=== PATIENT | male | born 1995 ===

== ENCOUNTER 2017-12-29 10:27 | Emergency (ER) | payer OTHER ==
[2017-12-29 10:30] VITALS: BMI 20.5
[2017-12-29 10:31] VITALS: PULSE 60; TEMP 98.1; O2SAT 100
[2017-12-29] MEDS ORDERED: Sodium Chloride 0.9% 1,000 ML IV STA (10:54)
[2017-12-29] MEDS ORDERED: Alum-Mag Hydrox-Simethicone Susp (30 mL) PO STA (10:56)
[2017-12-29] MEDS ORDERED: Alum-Mag Hydrox-Simethicone Susp (30 mL) ONE (11:06)
[2017-12-29 11:18] LABS: BASO % 0.5 % (0.0-2.0); EOS # 0.1 K/uL (0.0-0.7); EOS % 2.1 % (0.0-4.0); HEMOGLOBIN 18.1 g/dL (12.0-18.0); MEAN CELL VOLUME 88.6 fl (80.0-94.0); MEAN CORPUSCULAR HEMOGLOBIN 30.3 pg (27.0-31.0); MEAN CORPUSCULAR HGB CONC 34.2 g/dL (33.0-37.0); MEAN PLATELET VOLUME 8.3 fl (7.2-11.7); MONO # 0.5 K/uL (0.0-0.8); MONO % 9.3 % (0.0-10.0); NEUT # 2.8 K/uL (1.8-7.0); NEUT % 51.1 % (50.0-75.0); NRBC % 0.1 % (0.0-0.0); RBC 5.95 Mil/uL (4.40-5.90); RED CELL DISTRIBUTION WIDTH 13.3 % (11.5-14.5); WHITE BLOOD COUNT 5.4 K/uL (4.8-10.8)
[2017-12-29 11:22] LABS: URINE BACTERIA RARE (<OCC); URINE BILIRUBIN NEGATIVE (NEGATIVE); URINE BLOOD NEGATIVE (NEGATIVE); URINE CLARITY SLIGHTY-CLOUDY (Clear); URINE COLOR YELLOW (YELLOW); URINE GLUCOSE (UA) NEG (Normal); URINE LEUKOCYTE ESTERASE NEG Leu/uL (Negative); URINE PROTEIN 30 mg/dL (NEGATIVE); URINE UROBILINOGEN 0.2-1.0 mg/dL (0.2-1.0)
[2017-12-29 11:24] LABS: ALB/GLOB RATIO 1.3 (1.0-2.1); ALBUMIN 4.9 g/dL (3.5-5.0); ALT/SGPT 62 U/L (21-72); AST/SGOT 34 U/L (17-59); BLOOD UREA NITROGEN 10 mg/dl (9-20); CALCIUM 9.9 mg/dL (8.4-10.2); GFR NON-AFRICAN AMERICAN > 60; LIPASE 79 U/L (23-300)
--- NOTE | 2017-12-29 11:47 | ED PDOC ---
HPI: Abdomen Time Seen by Provider: 12/29/17 10:42 Chief Complaint (Nursing): Abdominal Pain Chief Complaint (Provider): diarrhea, epigastric pain History Per: Slasher Sawyer ([id number]) Onset/Duration Of Symptoms: Days (x1 month) Outside of [place] travel?: Yes Other Location:: [facility] Associated Symptoms: Vomiting Additional Complaint(s): Adal Musa, a 22 year old male with no significant past medical history, presents to the emergency department with diarrhea and epigastric abdominal pain onset 1 month. Patient states he first noticed the abdominal pain while eating lasagna and shortly after felt he had to vomit. He reports vomiting frequently and every bowel movement is loose but not watery diarrhea. Patient states he is tolerating fluids but sometimes food makes him vomit. He visited the [facility] 2 months ago and reports feeling fine there and fine since he returned. Patient denies fever, dysuria or rash. Vaccines UTD according to patient's mother. No further medical complaints. Past Medical History Reviewed: Historical Data, Nursing Documentation, Vital Signs Vital Signs: Last Vital Signs Temp 98.1 F 12/29/17 10:30 Pulse 60 12/29/17 10:30 Resp 18 12/29/17 10:30 BP 151/75 H 12/29/17 10:30 Pulse Ox 100 12/29/17 10:30 - Medical History PMH: No Chronic Diseases - Family History Family History: States: Unknown Family Hx - Home Medications Home Medications: Ambulatory Orders Medication Instructions Recorded Famotidine [Pepcid] 40 mg PO DAILY #30 tablet 12/29/17 Loperamide [Loperamide HCl] 2 mg PO BID #4 cap 12/29/17 - Allergies Allergies/Adverse Reactions: Allergies Allergy/AdvReac Type Severity Reaction Status Date / Time No Known Allergies Allergy Verified 12/29/17 10:34 Review of Systems ROS Statement: Except As Marked, All Systems Reviewed And Found Negative Constitutional: Negative for: Fever Gastrointestinal: Positive for: Vomiting, Abdominal Pain, Diarrhea Genitourinary Male: Negative for: Dysuria Skin: Negative for: Rash Physical Exam - Reviewed Nursing Documentation Reviewed: Yes Vital Signs Reviewed: Yes - Physical Exam Appears: Positive for: Well, Non-toxic, No Acute Distress Head Exam: Positive for: ATRAUMATIC, NORMAL INSPECTION, NORMOCEPHALIC Skin: Positive for: Normal Color, Warm, DRY Eye Exam: Positive for: EOMI, Normal appearance, PERRL ENT: Positive for: Normal ENT Inspection Neck: Positive for: Normal, Painless ROM Cardiovascular/Chest: Positive for: Regular Rate, Rhythm Respiratory: Positive for: Normal Breath Sounds. Negative for: Respiratory Distress Gastrointestinal/Abdominal: Positive for: Normal Exam, Soft Back: Positive for: Normal Inspection Extremity: Positive for: Normal ROM Neurologic/Psych: Positive for: Alert, Oriented - Laboratory Results Result Diagrams: 12/29/17 11:05 12/29/17 11:05 - ECG O2 Sat by Pulse Oximetry: 100 (RA) Pulse Ox Interpretation: Normal Medical Decision Making Medical Decision Making: Time: 10:42 Initial Impression: Initial Plan: --CMP --Lipase --Magnesium --Phosphorous --CBC w/ differential --Maalox Plus 30 ml --Sodium chloride 1000 ml IV --Pepcid 40 mg PO --Zofran 4 mg IVP --Urinalysis -no indication of dehydration or infectious process Time: 12:47 -normal labs, pain improved with GI cocktail, will give prescription for Pepcid and 1 day dose of loperamide, referal to PMD Time: 12:47 -patient is stable and will be discharged home Scribe Attestation: Documented by Mikayla Kennedy, acting as a scribe for Ericka Foote MD. Provider Scribe Attestation: All medical record entries made by the Scribe were at my direction and personally dictated by me. I have reviewed the chart and agree that the record accurately reflects my personal performance of the history, physical exam, medical decision making, and the department course for this patient. I have also personally directed, reviewed, and agree with the discharge instructions and disposition. Disposition - Clinical Impression Clinical Impression: Abdominal pain, Diarrhea - Disposition Referrals: [facility] [Outside] Disposition: Routine/Home Disposition Time: 12:47 Condition: IMPROVED Additional Instructions: Follow up in primary medicine clinic in one week. Take medications as prescribed. Stop taking the Immodium once you have a solid bowel movement. Prescriptions: Famotidine [Pepcid] 40 mg PO DAILY #30 tablet Loperamide [Loperamide HCl] 2 mg PO BID #4 cap Instructions: Diarrhea in Adolescents and Adults, Nausea and Vomiting, Adult (DC) Forms: [email or web address] (Spanish), [email or web address] (Hungarian) Print Language: OCCITAN
[2017-12-29 13:08] VITALS: BP 119/73; RESP 16
== END 2017-12-29 13:07 | disposition home or self-care (01) ==
LOC: H.ER 10:27
DX: R10.13 Epigastric pain (principal); R19.7 Diarrhea, unspecified
CPT/HCPCS: 80053; 81003; 83690; 83735; 84100; 85025; 96361; 96374; 96375; 99283; J2405; J7030